=== PATIENT | female | born 1980 | race African-American/Black ===

== ENCOUNTER 2019-08-01 05:58 | Day surgery (SDC) | payer OTHER ==
[~2019-08-01] VITALS: Ht 162.6 cm; Wt 93.9 kg
[2019-08-01 06:45] LABS: ANION GAP 13.2 (8-16); CARBON DIOXIDE 24.7 mmol/L (21-32); CREATININE 0.7 mg/dL (0.6-1.3); POTASSIUM 3.9 mmol/L (3.5-5.1)
[2019-08-01 06:47] LABS: EOSINOPHILS # (AUTO) 0.3 K/uL (0-0.4); MEAN CORPUSCULAR HEMOGLOBIN 32 pg (27-31); RED CELL DISTRIBUTION WIDTH 13.3 % (11.6-13.7); WHITE BLOOD COUNT (AUTO) 8.7 K/uL (4.8-10.8)
[2019-08-01 06:51] LABS: ALBUMIN 3.1 g/dL (3.4-5.0); TOTAL BILIRUBIN 0.2 mg/dL (0.0-1.0)
[2019-08-01 06:53] LABS: BASOPHILS % (AUTO) 0.2 % (0.0-2.0); EOSINOPHILS % (AUTO) 3.4 % (0.0-4.0); HEMATOCRIT 38.1 % (36-48); HEMOGLOBIN 12.6 g/dL (12.0-16.0); LYMPHOCYTES # (AUTO) 2.6 K/uL (2.5-16.5); LYMPHOCYTES % (AUTO) 29.7 % (20.5-51.1); MEAN CORPUSCULAR HGB CONC 33 g/dL (33-37); MEAN CORPUSCULAR VOLUME 96.2 fL (80-94); MONOCYTES # (AUTO) 0.6 K/uL (0.8-1.0); MONOCYTES % (AUTO) 6.5 % (1.7-9.3); NEUTROPHILS # (AUTO) 5.2 K/uL (1.8-7.7); NEUTROPHILS % (AUTO) 60.2 % (42.2-75.2); PLATELET COUNT (AUTO) 181 K/uL (140-450); RED BLOOD CELL COUNT(AUTO) 3.96 MIL/uL (4.20-5.40)
[2019-08-01] MEDS ORDERED: SUCCINYLCHOLINE CHLORIDE 200 MG/10 ML VIAL IVP ONE (07:30)
[2019-08-01] MEDS ORDERED: PROPOFOL 200 MG/20 ML VIAL IV ONE (07:30)
[2019-08-01] MEDS ORDERED: KETOROLAC 30 MG/ML VIAL ONE (07:30)
[2019-08-01] MEDS ORDERED: ONDANSETRON 4 MG/2 ML VIAL ONE (07:30)
[2019-08-01] MEDS ORDERED: LIDOCAINE 2% 100 MG/5 ML SYR IVP ONE (07:30)
[2019-08-01] MEDS ORDERED: NEOSTIGMINE 1:1000 10 MG/10 ML VIAL ONE (07:30)
[2019-08-01] MEDS ORDERED: ROCURONIUM 50 MG/5 ML VIAL IV ONE (07:30)
[2019-08-01] MEDS ORDERED: GLYCOPYRROLATE 0.2 MG/ML VIAL ONE (07:30)
[2019-08-01] MEDS ORDERED: DEXAMETHASONE 4 MG/ML VIAL ONE (07:30)
[2019-08-01] MEDS ORDERED: BUPIVACAINE-MPF/EPI 0.25% 30 ML VIAL INJ ONE (07:30)
[2019-08-01] MEDS ORDERED: DESFLURANE 240 ML BTL INH ONE (07:30)
[2019-08-01] MEDS ORDERED: MIDAZOLAM 2 MG/2 ML VIAL ONE (07:48)
[2019-08-01] MEDS ORDERED: fentaNYL 0.05 MG/ML VIAL ONE (07:48)
[2019-08-01] MEDS ORDERED: ONDANSETRON 4 MG/2 ML VIAL IVP PRN (08:15)
[2019-08-01] MEDS ORDERED: MORPHINE SULFATE 4 MG/ML SYR IV PRN (09:20)
[2019-08-01] MEDS ORDERED: HYDROmorphone 1 MG/ML AMP IVP PRN (09:20)
[2019-08-01] MEDS ORDERED: ONDANSETRON 4 MG/2 ML VIAL IV PRN (09:20)
[2019-08-01] MEDS: HYDROmorphone 1 MG/ML AMP IVP PRN ×4 (09:20→09:50)
[2019-08-01] MEDS ORDERED: MORPHINE SULFATE 2 MG/ML SYR IVP PRN (09:20)
[2019-08-01] MEDS ORDERED: HYDROcodone/APAP 5/325 MG 1 TAB TAB PO PRN (09:20)
[2019-08-01] MEDS ORDERED: HYDROmorphone PFS 2 MG/ML SYR ONE (09:32)
== END 2019-08-01 11:35 | disposition home or self-care (01) ==
LOC: MDS 05:58 → MMU 05:59 → MDS 11:35
PROVIDERS: ATTEND Surgery
DX: K42.9 Umbilical hernia without obstruction or gangrene (principal); K66.0 Peritoneal adhesions (postprocedural) (postinfection); I10 Essential (primary) hypertension; G43.909 Migraine, unspecified, not intractable, without status migrainosus; F17.200 Nicotine dependence, unspecified, uncomplicated; F41.9 Anxiety disorder, unspecified; Z98.51 Tubal ligation status; Z83.3 Family history of diabetes mellitus; E66.9 Obesity, unspecified; Z68.36 Body mass index [BMI] 36.0-36.9, adult
CPT/HCPCS: 36415; 49585; 71045; 80053; 84702; 85025; C1781; J0330; J0690; J1100; J1170; J1885; J2001; J2250; J2405; J2704; J2710; J3010; J3490; J7060; J7120

== ENCOUNTER 2019-08-04 15:10 | Emergency (ER) | payer OTHER ==
[~2019-08-04] VITALS: Ht 162.6 cm; Wt 92.1 kg
[2019-08-04 15:17] VITALS: BP 128/98
== END 2019-08-04 15:22 | disposition left against medical advice (07) ==
LOC: MED 15:10
DX: G89.18 Other acute postprocedural pain (principal); Z53.21 Procedure and treatment not carried out due to patient leaving prior to being seen by health care provider

== ENCOUNTER 2021-10-25 08:08 | Emergency (ER) | payer OTHER ==
[~2021-10-25] VITALS: Ht 162.6 cm; Wt 89.4 kg
[2021-10-25 08:19] VITALS: BP 146/90
--- NOTE | 2021-10-25 08:20 | NUR ---
PATIENT AMBULATED TO BED 12.
--- NOTE | 2021-10-25 08:25 | NUR ---
41 Y/O FEMALE C/O VAGINAL BLEEDING WITH DIZZINESS [id number] WITH 4/10 SUPRAPUBIC PAIN DESCRIBES CRAMPING INTERMITTENT X1WEEK. PT STATES SHE IS SATURATING 3-4 PADS A DAY. PT SAW PCP AND PRESCRIBED PROVERA AND MOTRIN WITH NO RELIEF. PT ALSO STATES SHE HAD A SYNCOPAL EPISODE LAST WEEK AT HOME, DENIES LOC, DENIES HEAD INJURY. DENIES N/V/D. DENIES FEVER/CHILLS. AAOX4 WITH EVEN AND STEADY GAIT; LUNGS CLEAR BL; PT DENIES ANY FEVER, CP, SOB, OR COUGH AT THIS TIME; VSS; PATIENT POSITIONED FOR COMFORT; HOB ELEVATED; BEDRAILS UP X2; BED DOWN. ER MD MADE AWARE OF PT STATUS. DENIES PMH NKA
--- NOTE | 2021-10-25 08:41 | NUR ---
LAB AT BEDSIDE.
--- NOTE | 2021-10-25 08:50 | NUR ---
US TECH BEDSIDE WITH PATIENT
[2021-10-25 09:04] LABS: BASOPHILS % (AUTO) 0.3 % (0.0-2.0); EOSINOPHILS # (AUTO) 0.2 K/uL (0-0.4); EOSINOPHILS % (AUTO) 3.6 % (0.0-4.0); HEMATOCRIT 37.6 % (36-48); HEMOGLOBIN 12.7 g/dL (12.0-16.0); LYMPHOCYTES # (AUTO) 2.2 K/uL (2.5-16.5); LYMPHOCYTES % (AUTO) 32.4 % (20.5-51.1); MEAN CORPUSCULAR HEMOGLOBIN 32 pg (27-31); MEAN CORPUSCULAR HGB CONC 34 g/dL (33-37); MEAN CORPUSCULAR VOLUME 93.6 fL (80-94); MONOCYTES # (AUTO) 0.4 K/uL (0.8-1.0); MONOCYTES % (AUTO) 5.4 % (1.7-9.3); NEUTROPHILS # (AUTO) 3.9 K/uL (1.8-7.7); NEUTROPHILS % (AUTO) 58.3 % (42.2-75.2); PLATELET COUNT (AUTO) 203 K/uL (140-450); RED BLOOD CELL COUNT(AUTO) 4.02 MIL/uL (4.20-5.40); RED CELL DISTRIBUTION WIDTH 13.7 % (11.6-13.7); WHITE BLOOD COUNT (AUTO) 6.7 K/uL (4.8-10.8)
--- NOTE | 2021-10-25 09:24 | NUR ---
Female Oceanography Teacher accompanied female patient for Ultrasound.
--- NOTE | 2021-10-25 09:58 | NUR ---
ER AT BEDSIDE
[2021-10-25 10:06] VITALS: BP 125/86
--- NOTE | 2021-10-25 10:06 | NUR ---
Patient discharged with v/s stable. Written and verbal after care instructions given and explained. Patient verbalized understanding. Ambulatory with steady gait, CALM DEMEANOR, UNLABORED BREATHING. All questions addressed prior to discharge. Advised to follow up with PMD.
== END 2021-10-25 10:06 | disposition home or self-care (01) ==
LOC: MED 08:08
DX: N93.8 Other specified abnormal uterine and vaginal bleeding (principal); F12.90 Cannabis use, unspecified, uncomplicated; Z98.890 Other specified postprocedural states
CPT/HCPCS: 36415; 76830; 81002; 81025; 85025; 99284; Q0092

== ENCOUNTER 2022-03-06 23:35 | Emergency (ER) | payer OTHER ==
[~2022-03-06] VITALS: Ht 162.6 cm; Wt 90.5 kg
[2022-03-06 23:42] VITALS: BP 137/96
--- NOTE | 2022-03-06 23:50 | NUR ---
PT TAKEN TO ER BED 08
--- NOTE | 2022-03-06 23:57 | NUR ---
ER MD AT BEDSIDE EXAMINING PT
--- NOTE | 2022-03-06 23:57 | NUR ---
XRAY AT BEDSIDE
[2022-03-07] MEDS ORDERED: KETOROLAC 60 MG/2 ML VIAL IM ONE (00:10)
--- NOTE | 2022-03-07 00:11 | NUR ---
41 y/o female bib self, c/o pain to right foot x2 days. PATIENT PRESENTS TO ED WITH SWOLLEN AND PAINFUL RIGHT FOOT . PT STATES X2 DAYS AGO SHE GOT UP IN THE MIDDLE OF THE NIGHT AND TRIPPED. CMS INTACT, REDNESS AND SWELLING TO RIGHT FOOT. DENIES N/V/D; SKIN IS PINK/WARM/DRY; AAOX4 WITH EVEN AND STEADY GAIT; LUNGS CLEAR BL; HR EVEN AND REGULAR; PT DENIES ANY FEVER, CP, SOB, OR COUGH AT THIS TIME; PATIENT STATES PAIN OF 8/10 AT THIS TIME; VSS; PATIENT POSITIONED FOR COMFORT; HOB ELEVATED; BEDRAILS UP X2; BED DOWN. ER MD MADE AWARE OF PT STATUS. HX: HTN NKA MED: LASIX (RAN OUT OF MED)
[2022-03-07] MEDS ORDERED: IBUP-2213 PO (00:32)
[2022-03-07] MEDS ORDERED: ACET-8386 PO (00:32)
[2022-03-07 00:49] VITALS: BP 137/96
--- NOTE | 2022-03-07 00:50 | NUR ---
Patient discharged with v/s stable. Written and verbal after care instructions given and explained. Patient alert, oriented and verbalized understanding of instructions. Wheel Chair Assisted with steady gait. All questions addressed prior to discharge. ID band removed. Patient advised to follow up with PMD. Rx of [facility]( 5/325) and Ibuprofen given. Patient educated on indication of medication including possible reaction and side effects. Opportunity to ask questions provided and answered. VSS, A/OX4, UNLABORED BREATHING, AND CALM DEMEANOR.
== END 2022-03-07 00:43 | disposition home or self-care (01) ==
LOC: MED 23:35
DX: S82.831A Other fracture of upper and lower end of right fibula, initial encounter for closed fracture (principal); W22.8XXA Striking against or struck by other objects, initial encounter; Y93.89 Activity, other specified; Y92.89 Other specified places as the place of occurrence of the external cause; Y99.8 Other external cause status
CPT/HCPCS: 29515; 73610; 73630; 96372; 99284; J1885; Q0092

== ENCOUNTER 2022-03-14 10:52 | Emergency (ER) | payer OTHER ==
[~2022-03-14] VITALS: Ht 162.6 cm; Wt 93.4 kg
[~2022-03-14 10:52] MED LIST: ACET-8386 PO; IBUP-2213 PO
[2022-03-14 10:59] VITALS: BP 147/99
--- NOTE | 2022-03-14 11:05 | NUR ---
PT W/C ASSISTED TO ER BED 7.
--- NOTE | 2022-03-14 11:06 | NUR ---
41 Y/O FEMALE C/O RIGHT LEG PAIN 08/08 DESCRIBES THROBBING RADIATES TO RIGHT HIP WORST WITH EXERTION X1WEEK. PT STATES SHE FELL X1WEEK AGO, DENIES LOC, DENIES HEAD INJURY. DENIES FEVER/CHILLS. DENIES N/V/D. PMH: HTN NKA
--- NOTE | 2022-03-14 11:10 | NUR ---
DR MARTINS AT BEDSIDE.
[2022-03-14] MEDS ORDERED: KETOROLAC 15 MG/ML VIAL IM ONE (11:20)
--- NOTE | 2022-03-14 11:26 | NUR ---
PT TO X-RAY VIA BED.
--- NOTE | 2022-03-14 11:30 | NUR ---
41 Y/O FEMALE BIB SELF C/O RIGHT ANKLE PAIN 08/08 DESCRIBES THROBBING RADIATES TO RIGHT HIP WORST WITH EXERTION SINCE 03/04/2022. PT STATES SHE FELL X1WEEK AGO 03/04/2022, DENIES LOC, DENIES HEAD INJURY. DENIES FEVER/CHILLS. DENIES N/V/D. PMH: HTN NKA
--- NOTE | 2022-03-14 11:50 | NUR ---
PT TO CT SCAN VIA BED.
--- NOTE | 2022-03-14 12:41 | NUR ---
DR MARTINS AT BEDSIDE APPLYNG SPLINT.
[2022-03-14 13:09] VITALS: BP 164/91
--- NOTE | 2022-03-14 13:10 | NUR ---
The patient's care was reviewed and supervised by Darlene Beverly RN, RN.
--- NOTE | 2022-03-14 13:10 | NUR ---
Patient discharged with v/s stable. Written and verbal after care instructions given and explained. Patient verbalized understanding. Ambulatory with steady gait. All questions addressed prior to discharge. Advised to follow up with PMD.
== END 2022-03-14 13:09 | disposition home or self-care (01) ==
LOC: MED 10:52
DX: S82.831A Other fracture of upper and lower end of right fibula, initial encounter for closed fracture (principal); W18.39XA Other fall on same level, initial encounter; Y92.89 Other specified places as the place of occurrence of the external cause; Y93.89 Activity, other specified; Y99.8 Other external cause status
CPT/HCPCS: 29515; 73560; 73590; 73610; 96372; 99284; J1885